=== PATIENT | female | born 1995 | race Hispanic/Latino ===

== ENCOUNTER 2025-07-01 09:35 | Emergency (ER) | payer SELFPAY ==
[2025-07-01 10:54] LABS: #Basophils 0.03 10x3/uL (0.0-0.2); #Eosinophils 0.05 10x3/uL (0.0-0.5); #Monocytes 0.47 10x3/uL (0.0-1.1); #Neutrophils 9.55 10x3/uL (1.5-8.4); %Basophils 0.3 % (0.0-2.0); %Eosinophils 0.4 % (0.0-6.0); %Lymphocytes 15.3 % (18.0-47.0); %Monocytes 3.9 % (0.0-10.0); %Neutrophils 79.8 % (40.0-75.0); Hematocrit 38.6 % (34.9-44.5); Hemoglobin 13.2 g/dL (12.0-15.5); Mean Corpuscular Hemoglobin 29.1 pg (27.0-33.0); Mean Corpuscular Volume 85.2 fL (81.6-98.3); Platelet Count 317 10x3/uL (150-450); Red Blood Cell (RBC) Count 4.53 10x6/uL (3.90-5.03); White Blood Cell (WBC) Count 11.96 10x3/uL (3.5-10.5)
[2025-07-01 11:10] LABS: ALT (SGPT) 17 U/L (Less than 34); AST (SGOT) 22 U/L (11-34); Albumin 3.4 g/dL (3.1-4.5); Alkaline Phosphatase 138 U/L (40-110); Anion Gap 14 mmol/L (10-20); BUN (Urea Nitrogen) 7 mg/dL (7.0-18.7); Bilirubin, Total 0.4 mg/dL (0.3-1.2); Calc. Creatinine Clearance 0 mL/min (70-130); Calcium 9.1 mg/dL (7.8-10.44); Carbon Dioxide 21 mmol/L (22-29); Chloride 107 mmol/L (98-107); Globulin 3.9 g/dL (2.4-3.5); Glucose 90 mg/dL (70-105); Potassium 3.9 mmol/L (3.5-5.1); Sodium 138 mmol/L (136-145)
[2025-07-01] MEDS ORDERED: Acetaminophen 500 MG TAB ONE (12:58)
== END 2025-07-01 13:48 | disposition home or self-care (01) ==
LOC: CSHERS 09:35
DX: O02.1 Missed abortion (principal); Z3A.18 18 weeks gestation of pregnancy
CPT/HCPCS: 80053; 84702; 85025; 99284

== ENCOUNTER 2025-07-05 06:19 | Inpatient (IN) | payer SELFPAY ==
[2025-07-05 07:08] VITALS: BMI 37.8
[2025-07-05] MEDS ORDERED: Ondansetron PF 4 MG/2 ML Vial IVP PRN (07:16)
[2025-07-05] MEDS ORDERED: Carboprost 250 MCG/ML AMP IM PRN (07:16)
[2025-07-05] MEDS ORDERED: Methylergonovine 0.2 MG/ML VIAL IM PRN (07:16)
[2025-07-05] MEDS ORDERED: Tranexamic Acid 1,000 MG/10 ML VIAL IVP PRN (07:16)
[2025-07-05] MEDS ORDERED: hydrALAZINE 20 MG/ML VIAL SLOW IVP PRN (07:16)
[2025-07-05] MEDS ORDERED: Diphenoxylate HCl/Atropine Tablet PO PRN (07:16)
[2025-07-05] MEDS ORDERED: Lidocaine 1% (PF) 30 ML VIAL SC PRN (07:16)
[2025-07-05] MEDS ORDERED: Oxytocin 30 units/NS 500 ML 500 ML IV SCH (07:30)
[2025-07-05 08:09] LABS: Hematocrit 38.0 % (34.9-44.5); Hemoglobin 12.8 g/dL (12.0-15.5); Mean Corpuscular Hemoglobin 28.8 pg (27.0-33.0); Mean Corpuscular Volume 85.4 fL (81.6-98.3); Platelet Count 294 10x3/uL (150-450); Red Blood Cell (RBC) Count 4.45 10x6/uL (3.90-5.03); White Blood Cell (WBC) Count 16.40 10x3/uL (3.5-10.5)
[2025-07-05] MEDS: Acetaminophen 500 MG TAB PO PRN (10:46)
[2025-07-05] MEDS: Metoclopramide HCl 10 MG (2 mL) VIAL IVP SCH (14:26)
[2025-07-05] MEDS: diphenhydrAMINE 50 MG/ML VIAL IVP SCH (14:28)
== END 2025-07-05 15:36 | disposition home or self-care (01) | DRG 779 ==
LOC: CSHLD/OP 06:19 → CSHLD 08:28
PROVIDERS: ADMIT Family Medicine; ATTEND Family Medicine
DX: O03.4 Incomplete spontaneous abortion without complication (principal); Z3A.18 18 weeks gestation of pregnancy
CPT/HCPCS: 36415; 85027; 86850; 86900; 86901; 88307; 99285; J1200; J2765